=== PATIENT | male | born 1970 | race American Indian/Alaskan Native ===

== ENCOUNTER 2018-03-27 12:19 | Emergency (ER) | payer BC ==
[2018-03-27 13:42] VITALS: RESP 18; TEMP 98.2; O2SAT 98
--- NOTE | 2018-03-27 13:44 | ED PDOC ---
Arrival/HPI - General Chief Complaint: Lower Extremity Problem/Injury Time Seen by Provider: 03/27/18 13:25 Historian: Patient - History of Present Illness Narrative History of Present Illness (Text): 03/27/18 13:40 47 year old male, with no significant past medical history, presents to the Emergency department complaining of left knee discomfort since yesterday. Patient states he jumped into the swimming pool yesterday when his left heel caught on a ledge and caused hyperextension of his left leg. Patient informs immediate discomfort and swelling to the left knee but denies icing the area or taking any pain medication. Patient states worsening discomfort with pressure and requests medical evaluation. Patient denies any fever, chills, nausea, vomiting, diarrhea, abdominal pain, chest pain, shortness of breath or any other complaints. Time/Duration: Other (Yesterday) Symptom Course: Unchanged Quality: Aching Activities at Onset: Light Context: Other (Swimming pool) Past Medical History - Provider Review Nursing Documentation Reviewed: Yes - Travel History Have you recently traveled outside [place] w/in the past 3 mons?: No Family/Social History - Physician Review Nursing Documentation Reviewed: Yes Family/Social History: No Known Family HX Allergies/Home Meds Allergies/Adverse Reactions: Allergies No Known Allergies Allergy (Verified 03/27/18 13:51) Review of Systems - Physician Review All systems were reviewed & negative as marked: Yes - Review of Systems Constitutional: Normal. absent: Fevers Eyes: Normal ENT: Normal Respiratory: Normal. absent: SOB Cardiovascular: Normal. absent: Chest Pain Gastrointestinal: Normal. absent: Abdominal Pain, Diarrhea, Nausea, Vomiting Genitourinary Male: Normal Musculoskeletal: Other (left knee pain) Skin: Normal Neurological: Normal Endocrine: Normal Hemo/Lymphatic: Normal Psychiatric: Normal Physical Exam Vital Signs Reviewed: Yes Vital Signs Temp Pulse Resp BP Pulse Ox 03/27/18 15:48 68 18 118/69 98 03/27/18 15:16 68 18 118/69 98 03/27/18 13:42 98.2 F 75 18 120/73 98 Temperature: Afebrile Blood Pressure: Normal Pulse: Regular Respiratory Rate: Normal Appearance: Positive for: Well-Appearing, Non-Toxic, Comfortable Pain Distress: None Mental Status: Positive for: Alert and Oriented X 3 - Systems Exam Head: Present: Atraumatic, Normocephalic Pupils: Present: PERRL Extroacular Muscles: Present: EOMI Conjunctiva: Present: Normal Mouth: Present: Moist Mucous Membranes Neck: Present: Normal Range of Motion Respiratory/Chest: Present: Clear to Auscultation, Good Air Exchange. No: Respiratory Distress, Accessory Muscle Use Cardiovascular: Present: Regular Rate and Rhythm, Normal S1, S2. No: Murmurs Abdomen: No: Tenderness, Distention, Peritoneal Signs Back: Present: Normal Inspection Upper Extremity: Present: Normal Inspection. No: Cyanosis, Edema Lower Extremity: Present: NORMAL PULSES, Normal ROM, Tenderness (left leg flexion and extension limited secondary to discomfort.), Swelling (left knee joint effusion), Capillary Refill < 2 s Neurological: Present: GCS=15, CN II-XII Intact, Speech Normal, Motor Func Grossly Intact, Gait Normal Skin: Present: Warm, Dry, Normal Color. No: Rashes Psychiatric: Present: Alert, Oriented x 3, Normal Insight, Normal Concentration Medical Decision Making ED Course and Treatment: 03/27/18 13:51 Impression: 47 year old male presents to the Emergency department for left knee discomfort. Differential Diagnosis included but are not limited to: fracture vs. sprain vs. strain On exam, negative left knee jt laxity in valgus, varus, drawer or lachmans; patella translates well, negative McMurrays Plan: -- CT of left knee -- Reassess and disposition Prior Visits: Notes and results from previous visits were reviewed. Progress Notes: Plain film images unremarkable for fracture or dislocation; likely soft tissue strain and sprain Advised to rest, ice, elevate, use KASHMIR wrap for support; if no change in a week , see PMD for further care; may require MRI and PT VSS on d/c and ambulating well - RAD Interpretation Radiology Orders: 03/27/18 13:55 KNEE LEFT 2 VIEWS (AP & LAT) [RAD] Stat - Scribe Statement The provider has reviewed the documentation as recorded by the Scribholger Dietz. All medical record entries made by the Scribe were at my direction and personally dictated by me. I have reviewed the chart and agree that the record accurately reflects my personal performance of the history, physical exam, medical decision making, and the department course for this patient. I have also personally directed, reviewed, and agree with the discharge instructions and disposition. Disposition/Present on Arrival - Present on Arrival Any Indicators Present on Arrival: Yes - Disposition Have Diagnosis and Disposition been Completed?: Yes Diagnosis: Left knee sprain, Strain of left knee Disposition: HOME/ ROUTINE Disposition Time: 15:31 Patient Plan: Discharge Condition: GOOD Discharge Instructions (ExitCare): Knee Sprain (DC) Additional Instructions: CRUZ REIS, thank you for letting us take care of you today. Your provider was Mateo Franklin DO and JACKIE Nguyễn and you were treated for (L) KNEE PAIN. The emergency medical care you received today was directed at your acute symptoms. If you were prescribed any medication, please fill it and take as directed. It may take several days for your symptoms to resolve. Return to the Emergency Department if your symptoms worsen, do not improve, or if you have any other problems. Ice, rest and elevate the knee and take ibuprofen. If the pain continues , see your doctor for an MRI for further evaluation Please contact your doctor or call one of the physicians/clinics you have been referred to that are listed on the Patient Visit Information form that is included in your discharge packet. Bring any paperwork you were given at discharge with you along with any medications you are taking to your follow up visit. Our treatment cannot replace ongoing medical care by a primary care provider outside of the emergency department. Thank you for allowing the [facility] team to be part of your care today. If you had an X-Ray or CT scan: A Radiologist will review the ED reading if any change in treatment is needed we will contact you. Prescriptions: Ibuprofen [Motrin Tab] 600 mg PO Q6 PRN 5 Days #20 tab PRN Reason: pain/fever Referrals: Ildefonso Turner MD [Primary Care Provider] - Follow up with primary Forms: WORK NOTE, [employer] (Yoruba)
[2018-03-27 14:03] VITALS: BMI 28.8
[2018-03-27 15:17] VITALS: BP 118/69; PULSE 68
--- NOTE | 2018-03-27 15:29 | RAD ---
PROCEDURE: Left Knee Radiographs. HISTORY: Pain. COMPARISON: None. FINDINGS: BONES: Normal. No fracture. JOINTS: Normal. No osteoarthritis. JOINT EFFUSION: None. OTHER FINDINGS: None. IMPRESSION: Normal radiographs of the left knee.
== END 2018-03-27 15:48 | disposition home or self-care (01) ==
LOC: ED 12:19 → MERGE 12:19 → ED 15:48
DX: S83.92XA Sprain of unspecified site of left knee, initial encounter (principal); S86.912A Strain of unspecified muscle(s) and tendon(s) at lower leg level, left leg, initial encounter; W23.0XXA Caught, crushed, jammed, or pinched between moving objects, initial encounter; Y93.11 Activity, swimming; Y92.34 Swimming pool (public) as the place of occurrence of the external cause